=== PATIENT | female | born 1955 | race Caucasian/White ===

== ENCOUNTER 2017-07-06 11:33 | Observation (INO) | payer OTHER ==
[2017-07-06] VITALS (18 sets, daily range): BP systolic 101–135; BP diastolic 55–75; PULSE 60–86; RESP 6–24; Ht 157.5 cm; Wt 65.2 kg
[~2017-07-06] VITALS: Ht 157.5 cm; Wt 65.2 kg
[~2017-07-06 11:33] MED LIST: CEFAZOLIN 2 GM/50 ML (PMX) 50 ML IVPB SCH; EPHEDrine SULFATE 50 MG/5 ML SYG ONE; NAPR-260 PO; SOD CHLORIDE 0.9% 1,000 ML IV SCH
[2017-07-06 12:22] LABS: BASOPHILS % 0.4 % (0.0-2.0); EOSINOPHILS # 0.1 10^3/ul (0.0-0.5); EOSINOPHILS % 1.5 % (0.0-7.0); HEMATOCRIT 40.7 % (37.0-47.0); HEMOGLOBIN 13.8 g/dl (12.0-16.0); LYMPHOCYTES # 1.6 10^3/ul (0.8-2.9); LYMPHOCYTES % 24.1 % (15.0-51.0); MEAN CORPUSCULAR HEMOGLOBIN 29.7 pg (29.0-33.0); MEAN CORPUSCULAR HGB CONC 33.9 g/dl (32.0-37.0); MEAN CORPUSCULAR VOLUME 87.7 fl (82.0-101.0); MEAN PLATELET VOLUME 9.1 fl (7.4-10.4); MONOCYTE # 0.6 10^3/ul (0.3-0.9); MONOCYTES % 8.4 % (0.0-11.0); NEUTROPHILS % 65.2 % (39.0-77.0); PLATELET COUNT 335 10^3/UL (140-415); RED BLOOD COUNT 4.64 10^6/ul (4.20-5.40); RED CELL DISTRIBUTION WIDTH 13.7 % (11.5-14.5); WHITE BLOOD COUNT 6.8 10^3/ul (4.8-10.8)
[2017-07-06 12:55] LABS: INR 0.89; PT RATIO 0.9
[2017-07-06 12:56] LABS: PARTIAL THROMBOPLASTIN TIME 27.5 Sec (25.0-35.0)
[2017-07-06 13:00] LABS: ALBUMIN 4.2 g/dl (3.3-4.9); ALBUMIN/GLOBULIN RATIO 1.16; BILIRUBIN,INDIRECT 0.3 mg/dl (0-1.1); BILIRUBIN,TOTAL 0.3 mg/dl (0.2-1.3); CALCIUM 9.5 mg/dl (8.4-10.2); CREATININE 0.56 mg/dl (0.44-1.00); TOTAL PROTEIN 7.8 g/dl (6.1-8.1)
--- NOTE | 2017-07-06 13:06 | RADRPT ---
PROCEDURE: XR Chest. CLINICAL INDICATION: Preoperative . TECHNIQUE: Single frontal chest x-ray. COMPARISON: None. FINDINGS: The lungs are clear of acute infiltrates, edema, effusions, or masses.. The cardiomediastinal silho uette is unremarkable. The osseous structures are intact. IMPRESSION: No acute cardiopulmonary disease. RPTAT: GG .Leonel Yeung MD, MD Date Time Electronically viewed and signed by .Leonel Yeung MD, MD on 07/06/2017 13:05 .L/
[2017-07-06] MEDS ORDERED: PROPOFOL 20 ML ONE (14:25)
[2017-07-06] MEDS ORDERED: MIDAZOLAM 1 MG/ML 2 ML INJ ONE (14:25)
[2017-07-06] MEDS ORDERED: LIDOCAINE 2% (SDV) 5 ML INJ ONE (14:25)
[2017-07-06] MEDS ORDERED: ROCURONIUM 50 MG INJ ONE (14:25)
[2017-07-06] MEDS ORDERED: SUCCINYLCHOLINE CHLORIDE 100 MG/5 ML SYG IV ONE (14:25)
[2017-07-06] MEDS ORDERED: FENTAnyl 50 MCG/ML VIAL ONE (14:26)
[2017-07-06] MEDS ORDERED: DIPHENHYDRAMINE 50 MG INJ IV PRN (14:30)
[2017-07-06] MEDS ORDERED: OXYCODONE/ACETAMINOPHEN (5/325) TAB PO PRN ×2 (14:30)
[2017-07-06] MEDS ORDERED: PROCHLORPERAZINE 10 MG INJ IV PRN (14:30)
[2017-07-06] MEDS ORDERED: ONDANSETRON 4 MG INJ IV PRN ×2 (14:30→16:00)
[2017-07-06] MEDS ORDERED: FENTAnyl 50 MCG/ML VIAL IV PRN (14:30)
[2017-07-06] MEDS ORDERED: MEPERIDINE 25 MG INJ IV PRN (14:30)
[2017-07-06] MEDS ORDERED: CEFAZOLIN 1 GM INJ ONE (14:38)
[2017-07-06] MEDS ORDERED: FAMOTIDINE 20 MG INJ ONE (14:38)
[2017-07-06] MEDS ORDERED: ONDANSETRON 4 MG INJ ONE (14:38)
[2017-07-06] MEDS ORDERED: DEXAMETHASONE 4 MG/ML 1 ML INJ ONE (14:38)
[2017-07-06] MEDS ORDERED: PHENYLephrine (100 MCG/ML) 5ML SYG ONE (14:39)
[2017-07-06] MEDS ORDERED: SUGAMMADEX SODIUM 200 MG/2 ML VIAL IV ONE ×3 (15:24→15:45)
[2017-07-06] MEDS ORDERED: HYDROCODONE/APAP (5/325) TAB PO PRN (16:00)
[2017-07-06] MEDS ORDERED: ACETAMINOPHEN 1000MG/100ML IV 100 ML IVPB PRN (16:00)
[2017-07-06] MEDS: HYDROmorphONE (0.2 MG/ML) 10ML SYG IV PRN ×3 (16:10→16:54)
--- NOTE | 2017-07-06 17:00 | OPR ---
DATE OF OPERATION: 07/06/2017 PREOPERATIVE DIAGNOSIS: Symptomatic cholelithiasis. POSTOPERATIVE DIAGNOSIS: Symptomatic cholelithiasis. OPERATION PERFORMED: Laparoscopic cholecystectomy. ANESTHESIA: General. ANESTHESIOLOGIST: SURGEON: Paul Ayala MD UPHOLSTERER OUTSIDE: Warren Arias MD INDICATIONS FOR PROCEDURE: Patient is a 61-year-old female who experienced multiple previous episodes of right upper quadrant pain. She had ultrasound-confirmed cholelithiasis. She was counseled as to the risks versus benefits of cholecystectomy. She consented and was scheduled for surgery. OPERATIVE PROCEDURE: Patient was brought to the operating theater, placed under general endotracheal tube anesthesia. The abdomen was prepped and draped in the usual sterile fashion. A 2 cm incision was made in the midline just above the umbilicus. Subcutaneous tissue was dissected with cautery down to the anterior rectus sheath, 0 Vicryl stay sutures were placed on either side of the linea alba. The linea alba was incised and the abdomen was entered without difficulty. Kristie trocar was then placed in the standard fashion. The abdomen was insufflated to a pressure approximately 14 mmHg with carbon dioxide. The laparoscope was then introduced and attention was directed to the right upper quadrant where a very distended gallbladder was identified. The 3 accessory ports were then placed under direct vision in the standard fashion. Through the lateral port sites, the gallbladder was grasped at the fundus and neck and retracted cephalad and lateral. The perineum overlying the gallbladder was then incised first medially than laterally using cautery. This facilitated mobilization of the triangle of Calot. With meticulous dissection, the cystic duct was then isolated. Two clips were placed across it distally and it was then transected with endovascular ZAYDA stapler at its junction with the neck of the gallbladder. Subsequently, the cystic artery was isolated, triply clipped and transected. The gallbladder was then dissected out of the gallbladder fossa using cautery, and prior to final transection, irrigation and inspection took place. Minimal bleeding was controlled with cautery. The gallbladder was then transected and the laparoscope was moved to the 12 mm subcostal port site. The gallbladder was then retrieved from the abdomen using the gallbladder retrieval bag through the umbilical port site. The Kristie trocar was placed back into the abdomen. The abdomen was reinsufflated. The laparoscope was moved back to the umbilical port. Final irrigation and inspection took place. There was no evidence of bleeding. The 3 accessory ports were then removed under direct vision. Again, there was no evidence of bleeding. Finally the umbilical port was removed. The midline umbilical fascia was reapproximated with 0 Prolene sutures in [id number] fashion. All wounds were irrigated with Betadine and skin incisions were reapproximated with skin derrell. The patient tolerated procedure well. ESTIMATED BLOOD LOSS: 10 mL. COMPLICATIONS: There were no complications. POSTOPERATIVE CONDITION: The patient was transported in stable condition to the recovery room. Dictated By: Paul Ayala MD /riya/johanna /Document#: [id number]
[2017-07-06] MEDS: D5W-0.45 NACL + KCL 20 MEQ 1,000 ML IV SCH (18:35)
[2017-07-06] MEDS: morphine 2 MG INJ IV PRN (18:35)
--- NOTE | 2017-07-06 19:34 | HP ---
DATE OF ADMISSION: 07/06/2017 CHIEF COMPLAINT: The patient is a 61-year-old female with a symptomatic gallstone, was seen by Dr. Ayala as an outpatient and was brought into hospital today for surgery. Patient underwent laparoscopic cholecystectomy. Patient had significant postoperative pain and is being admitted for further evaluation and management. Patient denied any chest pain or shortness of breath. No reported weakness or numbness in any extremity. Patient remained responsive. No reported fever or chills postoperatively. No recent attack of cholecystitis. Other than postoperative pain, rest of the review of systems are unremarkable. PAST SURGICAL HISTORY: Patient is status post x1. ALLERGIES: NONE. SOCIAL HISTORY: No smoking. No alcohol abuse. FAMILY HISTORY: Noncontributory. PHYSICAL EXAMINATION: GENERAL APPEARANCE: Patient awake and responsive. VITAL SIGNS: Temperature 97.6, pulse 78, respirations 21, blood pressure 119/68, O2 sat 98 on room air. HEENT: No eye discharge or redness. Extraocular movements intact. Oropharynx clear. NECK: No mass. CHEST: Fairly clear. CARDIOVASCULAR: S1, S2 normal. No murmur. ABDOMEN: Patient is status post lap ashlie. EXTREMITIES: No leg edema. Pedal pulses palpable. SKIN: Without rash. NEUROLOGIC: Patient is awake, alert, fairly oriented, with no gross focal deficit, although exam was limited due to recent surgery. LABORATORY: WBC 6.8, hemoglobin 13.8, platelets 335. Sodium 142, potassium 4, BUN 20, creatinine 0.5, glucose 94, AST 31, ALT 41, alk phos 135. IMPRESSION: Symptomatic gallstone, status post lap ashlie. PLAN: Patient admitted on medical floor. Patient will be given IV fluid, IV Tylenol, p.o. Percocet and IV morphine for pain control. Will also start her on IV Zofran on p.r.n. basis. For DVT prophylaxis, we will use SCDs. Patient will be started on clear liquid diet. Further recommendations will depend on patient's hospital course. Plan of care discussed with patient's family. Dictated By: Bryan King MD /ryia/ysabel /Document#: [id number]
--- NOTE | 2017-07-06 19:37 | RADRPT ---
Vent Rate: 60 bpm RR Interval: 0 msec MT Interval: 182 msec QRS Duration: 92 msec QT Interval: 450 msec QTC Interval: 450 msec P-R-T [place]: 61 - 67 - 58 degrees Normal sinus rhythm Normal ECG Electronically Signed By: Steve Mcmanus [id number]
[2017-07-07 01:59] VITALS: BP 117/67; RESP 18
[2017-07-07] MEDS: D5W-0.45 NACL + KCL 20 MEQ 1,000 ML IV SCH ×4 (02:41→13:53)
[2017-07-07 05:00] VITALS: BP 118/56; RESP 18
[2017-07-07] MEDS: morphine 2 MG INJ IV PRN (05:51)
[2017-07-07 07:41] VITALS: BP 116/62; RESP 18
[2017-07-07 14:16] VITALS: BP 135/64; RESP 18
--- NOTE | 2017-07-07 16:05 | PDOCDIS ---
Discharge Instructions CONDITION Patient Condition: Stable HOME CARE INSTRUCTIONS: Diet Instructions: RegularSpecial Diet: Regular Diet ACTIVITY: Activity Restrictions: Slowly Increase Activity Rest between Activity Avoid heavy lifting Do not Drive Do not operate Machinery Do not operate Power Tool Avoid Heavy Housework Bathing Restrictions: Sponge Bath FOLLOW UP/APPOINTMENTS Follow-up Plan FU with Primary MD X 1 WEEK FU with SURGERY as recommended. Call 911 or go to nearest hospital if symptoms get worse- daughter at bed side- patient and her daughter verbalized understanding dc instructions. [place]/staff ROSALINA SMITH Jul 07, 2017 16:05
[2017-07-07] MEDS ORDERED: TRAM50TA2 PO (16:08)
[2017-07-07] MEDS ORDERED: DOCU-144 PO (16:08)
[2017-07-07] MEDS ORDERED: PANT40TA4 PO (16:08)
--- NOTE | 2017-07-07 16:09 | DS ---
Date/Time of Note Date/Time of Note DATE: 07/07/17 TIME: 16:09 Discharge Summary Admission/Discharge Info Admit Date/Time Jul 06, 2017 at 15:50 Discharge Date/Time Patient Condition: Stable Home Meds Active Scripts Docusate Sodium* (Colace*) 100 Mg Capsule, 100 MG PO DAILY, #30 CAP Prov:ROSALINA SMITH 07/07/17 Pantoprazole (Protonix) 40 Mg Tabec, 40 MG PO DAILY, #20 TAB Prov:ROSALINA SMITH 07/07/17 Tramadol HCl (Tramadol HCl) 50 Mg Tablet, 50 MG PO Q8 Y for PAIN, #20 TAB Prov:ROSALINA SMITH 07/07/17 Discontinued Reported Medications Naproxen* (Naprosyn*) 500 Mg Tablet, 500 MG PO BID, TAB 02/23/16 Primary Care Provider Not On Staff Doctor Time spent on discharge: < 30 minutes ROSALINA SMITH Jul 07, 2017 16:09
== END 2017-07-07 17:00 | disposition home or self-care (01) ==
LOC: SDS 11:33 → MS2 15:50 → SDS 17:26
PROVIDERS: ADMIT Surgery Surgical Oncology; ATTEND Surgery Surgical Oncology
DX: K80.10 Calculus of gallbladder with chronic cholecystitis without obstruction (principal)
CPT/HCPCS: 47562; 71010; 80053; 85025; 85610; 85730; 88304; 93005; 96361; 96374; J0690; J1100; J1170; J2175; J2250; J2270; J2370; J2405; J3010; J3480; Z7500; Z7512; Z7610; G0378; J7030; J7999

== ENCOUNTER 2019-01-31 09:28 | Emergency (ER) | payer OTHER ==
[~2019-01-31] VITALS: Ht 157.5 cm; Wt 63.7 kg
[~2019-01-31 09:28] MED LIST changes: -CEFAZOLIN 2 GM/50 ML (PMX) 50 ML IVPB SCH; +DOCU-144 PO; -EPHEDrine SULFATE 50 MG/5 ML SYG ONE; -NAPR-260 PO; +PANT40TA4 PO; -SOD CHLORIDE 0.9% 1,000 ML IV SCH; +TRAM50TA2 PO
[2019-01-31 09:39] VITALS: Ht 157.5 cm; Wt 63.7 kg
[2019-01-31] MEDS ORDERED: ONDANSETRON (ODT) 4 MG TAB ODT STA (11:05)
[2019-01-31] MEDS ORDERED: HYDROCODONE/APAP (5/325) TAB PO ONE (11:30)
[2019-01-31] MEDS ORDERED: TRAM50TA2 PO (13:44)
--- NOTE | 2019-01-31 13:47 | ERD ---
ER Documentation Chief Complaint Chief Complaint right rib pain s/p fall last monday HPI 63-year-old female tripped and fell 1 week ago. She saw her primary doctor who prescribed Naprosyn. She has persistent anterior chest wall pain with movement. She denies sustained chest wall pain, shortness of breath, hemoptysis, fevers. Denies abdominal pain, restricted range of motion or deficits. ROS All systems reviewed and are negative except as per history of present illness. Medications Home Meds Active Scripts Tramadol HCl (Tramadol HCl) 50 Mg Tablet, 50 MG PO Q4 PRN for PAIN, #20 TAB Prov:CLIFFORD ROBB MD 01/31/19 Docusate Sodium* (Colace*) 100 Mg Capsule, 100 MG PO DAILY, #30 CAP Prov:ROSALINA SMITH 07/07/17 Pantoprazole (Protonix) 40 Mg Tabec, 40 MG PO DAILY, #20 TAB Prov:ROSALINA SMITH 07/07/17 Tramadol HCl (Tramadol HCl) 50 Mg Tablet, 50 MG PO Q8 PRN for PAIN, #20 TAB Prov:ROSALINA SMITH 07/07/17 Allergies Allergies: Coded Allergies: No Known Allergy (Unverified , 01/31/19) PMhx/Soc History of Surgery: Yes (C section, ) Anesthesia Reaction: No Hx Neurological Disorder: No Hx Respiratory Disorders: No Hx Cardiac Disorders: No Hx Psychiatric Problems: No Hx Miscellaneous Medical Probl: No Hx Alcohol Use: No Hx Substance Use: No Hx Tobacco Use: No FmHx Family History: No diabetes, No coronary disease, No other Physical Exam Vitals Vital Signs Date Temp Pulse Resp B/P (MAP) Pulse Ox O2 O2 Flow FiO2 Time Delivery Rate 01/31/19 97.5 73 16 140/65 99 09:39 (90) Physical Exam Const: No acute distress Head: Atraumatic Eyes: Normal Conjunctiva ENT: Normal External Ears, Nose and Mouth. Neck: Full range of motion. No meningismus. Resp: Clear to auscultation bilaterally Cardio: Regular rate and rhythm, no murmurs are tender right costochondral junction without deformities, crepitance, skin changes. Abd: Soft, non tender, non distended. Normal bowel sounds Skin: No petechiae or rashes Back: No midline or flank tenderness Ext: No cyanosis, or edema Neur: Awake and alert Psych: Normal Mood and Affect Results 24 hrs Current Medications Medications Dose Sig/Dinorah Start Time Status Last (Trade) Ordered Route PRN Stop Time Admin Dose Reason Admin 1 tab ONCE ONCE 01/31/19 DC 01/31/19 Acetaminophen PO 11:30 01/31/19 11:11 / 11:31 Hydrocodone Bitart (Alpine (5/325)) Ondansetron 8 mg ONCE STAT 01/31/19 DC 01/31/19 HCl (Zofran ODT 11:05 01/31/19 11:11 Odt) 11:06 Procedures/MDM Patient presents with significant chest wall pain after falling a week ago. She has no evidence of hypoxemia, rest or stress, symptoms to suggest cardiac chest pain, abdominal pain. CT chest shows no fracture or acute abnormalities or post traumatic sequela. Patient will be treated with tramadol, primary care follow- up and return precautions. She was given Alpine and Zofran here in the ED. Doubt cardiac contusion as she has no sustained chest pain, shortness of breath. She likely has chest wall contusion with costochondritis. The patient was stable with no new complaints during the ER course. Clinically, there is no current evidence to suggest meningitis, sepsis, acute abdomen, pneumonia, stroke, acute coronary syndrome, pulmonary embolism, aortic dissection or any other emergent condition appearing to require further evaluation or hospitalization. Patient counseled regarding my diagnostic impression and care plan. Prior to discharge all questions answered. Pt agrees with treatment plan and understands strict return precautions. Pt is instructed to follow up with primary care provider within 24-48 hours. Precautionary instructions provided including instructions to return to the ER if not improving or for any worsening or changing symptoms or concerns. Departure Diagnosis: Primary Impression: Contusion, chest wall Encounter type: initial encounter Laterality: unspecified laterality Qual ified Codes: S20.219A - Contusion of unspecified front wall of thorax, initial encounter Condition: Stable Patient Instructions: Chest Wall Contusion Additional Instructions: ct normal. Examines normal hoy. Cheque otro vez con russo doctor primario en el proximo tejeda or regresa para mas o nueva simptomas. CLIFFORD ROBB MD Jan 31, 2019 13:47
[2019-01-31 13:50] VITALS: BP 131/86; PULSE 75; RESP 16
== END 2019-01-31 13:50 | disposition home or self-care (01) ==
LOC: FTE 09:28
DX: S20.219A Contusion of unspecified front wall of thorax, initial encounter (principal); W01.0XXA Fall on same level from slipping, tripping and stumbling without subsequent striking against object, initial encounter; Y92.9 Unspecified place or not applicable
CPT/HCPCS: 71250; Z7502; Z7610